=== PATIENT | male | born 1995 | race Caucasian/White ===

== ENCOUNTER 2020-03-15 11:28 | Emergency (ER) | payer OTHER ==
[~2020-03-15] VITALS: Ht 182.9 cm; Wt 78.0 kg
[2020-03-15] MEDS ORDERED: ZOFR4TAB16 PO (11:41)
[2020-03-15 12:09] LABS: HEMATOCRIT 44.2 % (42.0-52.0); MEAN CORPUSCULAR HGB CONC 36.2 g/dl (32.0-36.5); MEAN CORPUSCULAR VOLUME 82.8 fl (80.0-96.0); PLATELET COUNT, AUTOMATED 245 10^3/uL (150-450); RED BLOOD COUNT 5.34 10^6/uL (4.30-6.10)
[2020-03-15 12:39] LABS: ATYPICAL LYMPH 6 % (0-5); BASOPHILS 1 % (0-1); EOSINOPHILS 2 % (0-3); LYMPHOCYTES 29 % (16-44); MONOCYTES 8 % (0-5); NEUTROPHILS 54 % (28-66)
[2020-03-15 12:40] LABS: PLATELET ESTIMATE NORMAL (NORMAL)
[2020-03-15 12:41] LABS: ALT/SGPT 31 U/L (12-78); BILIRUBIN,DIRECT 0.2 MG/DL (0.0-0.2); BILIRUBIN,TOTAL 0.9 MG/DL (0.2-1.0); BLOOD UREA NITROGEN 16 MG/DL (7-18); CALCIUM LEVEL 9.9 MG/DL (8.5-10.1); CARBON DIOXIDE LEVEL 22 MEQ/L (21-32); CHLORIDE LEVEL 103 MEQ/L (98-107); CREATININE FOR GFR 1.09 MG/DL (0.70-1.30); GLOMERULAR FILTRATION RATE > 60.0 (>60); GLUCOSE, FASTING 85 MG/DL (70-100); LIPASE 58 U/L (73-393); POTASSIUM SERUM 3.5 MEQ/L (3.5-5.1); SODIUM LEVEL 133 MEQ/L (136-145); TOTAL PROTEIN 8.1 GM/DL (6.4-8.2)
[2020-03-15] MEDS ORDERED: ONDANSETRON 4MG/2ML VIAL IV ONE (12:45)
[2020-03-15] MEDS ORDERED: NS 1,000 ML IV ONE (12:45)
[2020-03-15] MEDS ORDERED: ISOVUE-370 76% 100ML VIAL As Ordered ONE (12:52)
--- NOTE | 2020-03-15 14:24 | REP ---
CT ABDOMEN AND PELVIS WITH IV BUT WITHOUT ORAL CONTRAST: HISTORY: Left upper quadrant and epigastric pain. Right lower quadrant pain. CT CONTRAST DOSE: 100 mL of intravenous Isovue 370. CT FINDINGS: Digital preliminary worm picker radiograph is unremarkable. The lung bases are clear on axial CT images. The liver and the spleen are normal in size homogeneous in texture. No adrenal lesion is seen. No pancreatic abnormality is seen. The kidneys enhance symmetrically and are morphologically intact. No abnormalities noted in the gallbladder. No retroperitoneal mass or adenopathy is seen. No vascular abnormality is observed. Small and large intestinal bowel loops are normal in the abdomen and pelvis. There is air and there are two radio densities in the lumen of the appendix in the right lower quadrant. This may reflect appendicoliths. However, there is no evidence of appendiceal inflammation to suggest appendicitis. There is no abnormal fluid collection. Prostate seminal vesicles and urinary bladder are unremarkable. No abdominal wall defect is seen. IMPRESSION: No acute intra-abdominal abnormality. There are two small densities in the appendix consistent with appendicoliths along with some air but no appendiceal inflammation or dilation is seen. Otherwise negative. Electronically Signed by Kirk Lu MD 03/15/2020 03:02 P
[2020-03-15 15:15] VITALS: BP 129/76
== END 2020-03-15 15:29 | disposition home or self-care (01) ==
LOC: M ED 11:28
DX: R11.10 Vomiting, unspecified (principal); R19.7 Diarrhea, unspecified; F17.200 Nicotine dependence, unspecified, uncomplicated; Z79.899 Other long term (current) drug therapy
CPT/HCPCS: 36415; 74177; 80048; 80076; 81001; 83690; 85025; 96361; 96374; 99284; J2405; Q9967

== ENCOUNTER 2020-03-17 02:38 | Emergency (ER) | payer OTHER ==
[~2020-03-17] VITALS: Ht 182.9 cm; Wt 77.4 kg
[~2020-03-17 02:38] MED LIST: ZOFR4TAB16 PO
[2020-03-17 02:45] VITALS: BP 116/58
== END 2020-03-17 05:25 | disposition left against medical advice (07) ==
LOC: EDBD 02:38 → M ED 02:38
DX: Z53.21 Procedure and treatment not carried out due to patient leaving prior to being seen by health care provider (principal)